=== PATIENT | female | born 1935 | race Caucasian/White ===

== ENCOUNTER 2016-12-30 19:15 | Emergency (ER) | payer OTHER ==
[2016-12-30 19:23] VITALS: TEMP 97.9
--- NOTE | 2016-12-30 19:35 | EDPHY ---
H & P Stated Complaint: TRIPPED ON CURB, HIT FACE, NO LOC, ABRAISONS TO FACE - Personal History Current Tetanus/Diphtheria Vaccine: Unsure - Medical/Surgical History Hx Asthma: No Hx Chronic Respiratory Disease: No Hx Diabetes: No Hx Cardiac Disease: No Hx Renal Disease: No Hx Cirrhosis: No Hx Alcoholism: No Hx HIV/AIDS: No Hx Splenectomy or Spleen Trauma: No Other PMH: HTN, HIGH CHOL, THYROID, CAROTID ARTERY SURG, FX LEFT LEG, TUBAL LIG - Social History Smoking Status: Former smoker Time Seen by Provider: 12/30/16 19:34 Constitutional: Initial Vital Signs Temperature (C) 36.6 C 12/30/16 19:17 Heart Rate 84 12/30/16 19:17 Respiratory Rate 18 12/30/16 19:17 Blood Pressure 193/81 H 12/30/16 19:17 O2 Sat (%) 92 12/30/16 19:17 O2 Delivery Mode Room Air Allergies/Adverse Reactions: No Known Allergies Allergy (Unverified 12/30/16 19:23) Home Medications: Medication Instructions Recorded Cholestersol Med 12/30/16 Hydrochlorothiazide 12/30/16 Metoprolol Succinate 12/30/16 Ramipril 12/30/16 Synthroid 12/30/16 Medical Decision Making Procedures: Procedure: Laceration repair with tissue adhesive I was asked by Dr Velarde to perform wound closure Verbal consent was obtained from the patient. The 2, 1 cm discrete glabellar laceration and 1, 1 cm philtrum laceration which is not through and through were anesthetized with 1% lidocaine with epinephrine copiously irrigated by ER staff and closed with tissue adhesive. . The procedure was performed by myself. Patient has been informed that scarring will occur, although every effort has been made to minimize this. (Verona Perez) ED Course/Re-evaluation: CHIEF COMPLAINT: Facial injury HISTORY OF PRESENT ILLNESS: The patient is a 81 y/o female arriving with her family member complaining of facial injuries after falling this evening. She says she was pushing a garbage can on her driveway and tripped and collided with it. She fell and her forehead hit the concrete and her glasses broke. She denies loss of consciousness, weakness, paresthesias, or other injuries. She was able to stand up and walk following the injury without issue. She denies anticoagulant use, but does take a baby aspirin. REVIEW OF SYSTEMS: A 10 point review of systems was performed and is negative with the exception of the elements mentioned in the history of present illness. PHYSICAL EXAM: HR, BP, O2 Sat, RR. Temp noted General Appearance: Alert, well hydrated, appropriate, and non-toxic appearing. Head: Forehead hematoma with small 1cm laceration medial left eyebrow, no scalp tenderness Eyes: Pupils equal, round, reactive to light and accommodation, EOMI, no trauma , no injection, no evidence of extraocular entrapment Ears: Clear bilaterally, no perforation, normal landmarks Nose: Atraumatic, no rhinorrhea, clear. Throat: There is no erythema or exudates, no lesions, normal tonsils, mucus membranes moist. Neck: Supple, 2+ carotid upstroke, nontender, no lymphadenopathy. Respiratory: No retractions, no distress, no wheezes, and no accessory muscle use. Lungs are clear to auscultation bilaterally. Cardiovascular: Regular rate and rhythm, no murmurs, rubs, or gallops. Bilateral carotid, radial, dorsalis pedis, and posterior tibial pulses intact. Good capillary refill all extremities. Gastrointestinal: Abdomen is soft, nontender, non-distended, no masses, no rebound, no guarding, no peritoneal signs. Musculoskeletal: Normal active ROM of all extremities, atraumatic. Neurological: Alert, appropriate, and interactive. The patient has normal DTRs and non-focal cranial nerves, motor, sensory, and cerebellar exam. Skin: No rashes, good turgor, no nodules on palpation. Past medical history: Hypertension Past surgical history: carotid artery surgery Family history: Noncontributory Social history: Family member at bedside DIAGNOSTICS/PROCEDURES/CRITICAL CARE TIME: Study: CT of the Head Indication: Trauma, pain Results: CT scan of the head was obtained. The results of the study are negative. The study was read by the radiologist, Dr. Zayas. I viewed the images myself on the PACS system. Study: CT of the Face Indication: Trauma, pain Results: CT scan of the face was obtained. The results of the study are negative. The study was read by the radiologist, Dr. Zayas. I viewed the images myself on the PACS system. DIFFERENTIAL DIAGNOSIS: The differential diagnosis for the patient's trauma included but was not limited to intracranial injury, long bone and pelvic bone fractures, spinal injury, intra-abdominal injury, and intra-thoracic injury. MEDICAL DECISION MAKING: This is a 81 y/o female presenting with forehead hematoma and small facial laceration secondary to a trip and fall this evening. No LOC or other injuries. No evidence of extraocular entrapment. Normal neurovascular exam. Plan for wound care and head and face CTs to rule out intracranial process. Laceration repaired by SCARLETT Perez. CTs are negative. Patient will be discharged with contusion and laceration instructions as well as specific return precautions. She declined script for pain medication. She is comfortable with this plan. (Connor Velarde) - Data Points Medications Given: Discontinued Medications Diphtheria/Tetanus/Acell Pertussis (Boostrix) 0.5 ml IM .ONCE ONE Stop: 12/30/16 19:51 Last Admin: 12/30/16 20:07 Dose: 0.5 ml Octyl Cyanoacrylate (Dermabond) 1 each TP EDNOW ONE Stop: 12/30/16 20:24 Last Admin: 12/30/16 20:26 Dose: 1 each Departure - Departure Disposition: Home, Routine, Self-Care Clinical Impression: Contusion of forehead, Face lacerations Condition: Good Instructions: Contusion in Adults (ED), Facial Laceration (ED) Additional Instructions: 1. Apply ice to sore areas. Take Tylenol as prescribed on the packaging as needed for pain. Expect to feel more sore tomorrow. 2. Follow up with your primary care provider for any symptoms not improved over the next 3-4 days. 3. Return to the ED for severe headache, vision changes, weakness or numbness on one side of your body, or other worsening of condition. Referrals: Brit Abraham PA [Primary Care Provider] - As per Instructions
[2016-12-30] MEDS ORDERED: TDAP ADULT 0.5 ML INJ (BOOSTRIX) IM ONE (19:50)
[2016-12-30] MEDS ORDERED: SKIN ADHESIVE (DERMABOND) 1 EACH TP ONE (20:23)
[2016-12-30 21:18] VITALS: BP 168/89; PULSE 86; RESP 16; O2SAT 96
--- NOTE | 2016-12-30 21:21 | CT ---
CT Head, Without Contrast History: Fall. Trauma. Technique: Standard noncontrast head CT protocol utilizing axial images acquired through the calvari um. Images were reconstructed down to 1.25-mm slice thickness, as well. Radiation dose technique wa s utilized. Findings: Soft tissue swelling is seen at the frontal scalp. No evidence for a skull fracture. No evidence for an intracranial mass, hemorrhage, or infarct. There is mild prominence of the ventricle s, sulci, and cisterns. No evidence for an extraaxial fluid collection. Vascular calcifications are seen intracranially indicating atherosclerotic disease. Impression: Soft tissue swelling in the frontal scalp, without evidence for a skull fracture. No ev idence for acute intracranial abnormality. CT Facial Bones, Without Contrast History: Trauma. Fall. Technique: 1-mm helical images were obtained of the facial bones, without contrast. Findings: Soft tissue swelling is seen over the supraorbital region. No evidence for an orbital rim fracture. Both globes are intact. Minimal mucous membrane thickening is seen in the maxillary sinu ses. No other findings for a facial bone fracture. Impression: Soft tissue swelling. No evidence for a facial bone fracture. Results called and discussed with Syd Davis M.D., at December 30, 2016 at 2048 hours.
== END 2016-12-30 21:18 | disposition home or self-care (01) ==
PROC: 08QPXZZ Repair Left Upper Eyelid, External Approach (ICD-10-PCS; principal; 2016-12-30)
DX: S01.112A Laceration without foreign body of left eyelid and periocular area, initial encounter (principal); I10 Essential (primary) hypertension; Z87.891 Personal history of nicotine dependence; Z23 Encounter for immunization; W01.198A Fall on same level from slipping, tripping and stumbling with subsequent striking against other object, initial encounter; Y92.89 Other specified places as the place of occurrence of the external cause; Y93.89 Activity, other specified

== ENCOUNTER → 2017-02-13 | Outpatient (CLI) | payer OTHER | LOC: BHCLAF 14:00 | PROVIDERS: ATTEND Internal Medicine Cardiovascular Disease | DX: I34.0 Nonrheumatic mitral (valve) insufficiency (principal) | CPT/HCPCS: 93306-PO ==

== ENCOUNTER → 2017-03-15 | Outpatient (CLI) | payer OTHER | LOC: BHCLAF 14:30 | PROVIDERS: ATTEND Internal Medicine Cardiovascular Disease | DX: I10 Essential (primary) hypertension (principal); E78.5 Hyperlipidemia, unspecified; I34.0 Nonrheumatic mitral (valve) insufficiency | CPT/HCPCS: 93005-PO ==

== ENCOUNTER 2019-03-01 08:17 | Emergency (ER) | payer OTHER ==
--- NOTE | 2019-03-01 08:31 | EDPHY ---
H & P Stated Complaint: High BP this am Time Seen by Provider: 03/01/19 08:28 - Personal History Current Tetanus/Diphtheria Vaccine: Yes - Medical/Surgical History Hx Asthma: No Hx Chronic Respiratory Disease: No Hx Diabetes: No Hx Cardiac Disease: No Hx Renal Disease: No Hx Cirrhosis: No Hx Alcoholism: No Hx HIV/AIDS: No Hx Splenectomy or Spleen Trauma: No Other PMH: HTN, HIGH CHOL, THYROID, CAROTID ARTERY SURG, FX LEFT LEG, TUBAL LIG - Social History Smoking Status: Former smoker Constitutional: Initial Vital Signs Temperature (C) 36.9 C 03/01/19 08:23 Heart Rate 74 03/01/19 08:23 Respiratory Rate 18 03/01/19 08:23 Blood Pressure 215/97 H 03/01/19 08:23 O2 Sat (%) 92 03/01/19 08:23 O2 Delivery Mode Room Air Allergies/Adverse Reactions: No Known Allergies Allergy (Unverified 12/30/16 19:23) Home Medications: Medication Instructions Recorded Cholestersol Med 12/30/16 Hydrochlorothiazide 12/30/16 Metoprolol Succinate 12/30/16 Ramipril 12/30/16 Synthroid 12/30/16 Cephalexin [Keflex (RX)] 500 mg PO TID #30 cap 03/01/19 Medical Decision Making ED Course/Re-evaluation: CHIEF COMPLAINT: High blood pressure HISTORY OF PRESENT ILLNESS: The patient is an 83 y/o female with a history of hypertension and hypercholesteremia complaining of high blood pressure this morning. The patient takes Ramipril, metoprolol, and hydrochlorothiazide for her hypertension. This morning she took Ramipril and HCTZ as prescribed. Shortly after she felt flush in the face and had a "crick in her neck" and a slight headache. She denies chest pain/pressure or shortness of breath. She also felt mildly unsteady on her feet. Due to these symptoms she took her BP which was 170/105. She normally does not take her BP reading in the morning. She took the BP several times and the last reading before arriving to the ED was 165/80. Due to these symptoms she decided to present to the emergency department. No fever, body aches, lightheadedness, chest pain, heart palpitations, shortness of breath, cough, abdominal pain, urinary or bowel complaints, numbness, paresthesias. She is seen by Dr. Jimenez, glove pairer, and just had an echo performed. REVIEW OF SYSTEMS: A 10 point review of systems was performed and is negative with the exception of the elements mentioned in the history of present illness. PHYSICAL EXAM: HR, BP, O2 Sat, RR. Temp noted General Appearance: Alert, well hydrated, appropriate, and non-toxic appearing. Head: Atraumatic without scalp tenderness or obvious injury Eyes: Pupils equal, round, reactive to light and accommodation, EOMI, no trauma , no injection. Ears: Clear bilaterally, no perforation, normal landmarks Nose: Atraumatic, no rhinorrhea, clear. Throat: There is no erythema or exudates, no lesions, normal tonsils, mucus membranes moist. Neck: Supple, 2+ carotid upstroke, nontender, no lymphadenopathy. Respiratory: No retractions, no distress, no wheezes, and no accessory muscle use. Lungs are clear to auscultation bilaterally. Cardiovascular: Regular rate and rhythm, no murmurs, rubs, or gallops. Bilateral carotid, radial, dorsalis pedis, and posterior tibial pulses intact. Good capillary refill all extremities. Gastrointestinal: Abdomen is soft, nontender, non-distended, no masses, no rebound, no guarding, no peritoneal signs. Musculoskeletal: Normal active ROM of all extremities, atraumatic. Neurological: Alert, appropriate, and interactive. The patient has normal DTRs and non-focal cranial nerves, motor, sensory, and cerebellar exam. Skin: No rashes, good turgor, no nodules on palpation. Past medical history: Hypertension, hypercholesteremia Past surgical history: Carotid artery surgery, tubal ligation Family history: Denies Social history: Daughter at bedside, lives in [place] DIAGNOSTICS/PROCEDURES/CRITICAL CARE TIME: EKG: The 12 lead EKG was interpreted by myself as sinus rhythm with a rate of 65. See hard copy and/or "tracemaster" electronic copy for interpretation. DIFFERENTIAL DIAGNOSIS: The differential diagnosis for the patient's hypertension includes but is not limited to transient hypertension, hypertensive urgency, hypertensive emergency , headache. MEDICAL DECISION MAKING: The patient is an 83 y/o female with a history of hypertension and hypercholesteremia presenting with high blood pressure this morning. The patient takes Ramipril, metoprolol, and hydrochlorothiazide for her hypertension , which she has taken for several years. This morning she took Ramipril and HCTZ as prescribed. Shortly after she felt flush in the face and had a "crick in her neck" and a slight headache. Her home BP readings were 170/105 and 165/ 80. She normally does not take her BP reading in the morning. On exam the patient has a BP of 202/101 but is otherwise asymptomatic. She is not in a hypertensive urgency or emergency. EKG ordered. 0842: I interpreted patient's EKG as sinus rhythm with a rate of 65. 9:50 a.m.: I spoke with Dr. Minesh Jimenez from Cardiology. This is his patient. He knows her well. He looked back at her records and states that usually her blood pressure is quite good in the office. He just saw her at the beginning of January and had pressures in the 120s over 80s range. He would like me to check some laboratory studies. Once again this patient is still asymptomatic. If laboratory studies are normal he would like me to change her amlodipine from the morning till the evening. And increased from 5-10 mg. And then he will follow up with her next week. He would like me to keep the ramipril, metoprolol , and hydrochlorothiazide the same. 1039: Patient's UA reveals a low-grade UTI; I have prescribed her Keflex. Patient is a hard stick and we are just now getting blood. 1104: Patients' BP is 178/81; labs still pending. 1125: Reassessed patient and discussed laboratory and imaging findings. Patient' s symptoms are due to transient hypertension. I have discussed plan to change Amlodipine. She will follow up with Dr. Jimenez. Return precautions provided; patient is comfortable with this plan. - Data Points Laboratory Results: Laboratory Results 03/01/19 10:50 03/01/19 10:50 03/01/19 03/01/19 03/01/19 10:58 10:50 10:50 WBC 9.27 10^3/uL 10^3/uL (3.80-9.50) RBC 4.48 10^6/uL 10^6/uL (4.18-5.33) Hgb 14.8 g/dL g/dL (12.6-16.3) Hct 43.9 % % (38.0-47.0) MCV 98.0 fL fL (81.5-99.8) MCH 33.0 pg pg (27.9-34.1) MCHC 33.7 g/dL g/dL (32.4-36.7) RDW 12.9 % % (11.5-15.2) Plt Count 236 10^3/uL 10^3/uL (150-400) MPV 9.5 fL fL (8.7-11.7) Neut % (Auto) 68.1 % % (39.3-74.2) Lymph % (Auto) 22.1 % % (15.0-45.0) [place] % (Auto) 5.9 % % (4.5-13.0) Eos % (Auto) 2.7 % % (0.6-7.6) Baso % (Auto) 0.6 % % (0.3-1.7) Nucleat RBC Rel Count 0.0 % % (0.0-0.2) Absolute Neuts (auto) 6.30 10^3/uL 10^3/uL (1.70-6.50) Absolute Lymphs (auto) 2.05 10^3/uL 10^3/uL (1.00-3.00) Absolute Monos (auto) 0.55 10^3/uL 10^3/uL (0.30-0.80) Absolute Eos (auto) 0.25 10^3/uL 10^3/uL (0.03-0.40) Absolute Basos (auto) 0.06 10^3/uL 10^3/uL (0.02-0.10) Absolute Nucleated RBC 0.00 10^3/uL 10^3/uL (0-0.01) Immature Gran % 0.6 % % (0.0-1.1) Immature Gran # 0.06 10^3/uL 10^3/uL (0.00-0.10) Sodium 139 mEq/L mEq/L (135-145) Potassium 4.2 mEq/L mEq/L (3.5-5.2) Chloride 101 mEq/L mEq/L (97-110) Carbon Dioxide 28 mEq/l mEq/l (22-31) Anion Gap 10 mEq/L mEq/L (6-14) BUN 14 mg/dL mg/dL (7-23) Creatinine 0.8 mg/dL mg/dL (0.6-1.0) Estimated GFR > 60 Glucose 106 mg/dL H mg/dL (70-100) Calcium 10.7 mg/dL H mg/dL (8.5-10.4) Phosphorus Pending POC Troponin I 0.01 ng/mL ng/mL (0.00-0.08) NT-Pro-B Natriuret Pep Pending Urine Color Urine Appearance Urine pH Ur Specific [place] Urine Protein Urine Ketones Urine Blood Urine Nitrate Urine Bilirubin Urine Urobilinogen Ur Leukocyte Esterase Urine RBC Urine WBC Ur Epithelial Cells Urine Bacteria Urine Mucus Urine Glucose 03/01/19 10:20 WBC RBC Hgb Hct MCV MCH MCHC RDW Plt Count MPV Neut % (Auto) Lymph % (Auto) [place] % (Auto) Eos % (Auto) Baso % (Auto) Nucleat RBC Rel Count Absolute Neuts (auto) Absolute Lymphs (auto) Absolute Monos (auto) Absolute Eos (auto) Absolute Basos (auto) Absolute Nucleated RBC Immature Gran % Immature Gran # Sodium Potassium Chloride Carbon Dioxide Anion Gap BUN Creatinine Estimated GFR Glucose Calcium Phosphorus POC Troponin I NT-Pro-B Natriuret Pep Urine Color YELLOW Urine Appearance CLEAR Urine pH 7.0 (5.0-7.5) Ur Specific [place] 1.004 (1.002-1.030) Urine Protein NEGATIVE (NEGATIVE) Urine Ketones NEGATIVE (NEGATIVE) Urine Blood NEGATIVE (NEGATIVE) Urine Nitrate POSITIVE H (NEGATIVE) Urine Bilirubin NEGATIVE (NEGATIVE) Urine Urobilinogen NEGATIVE EU EU (0.2-1.0) Ur Leukocyte Esterase NEGATIVE (NEGATIVE) Urine RBC NONE SEEN /hpf /hpf (0-3) Urine WBC 3-5 /hpf H /hpf (0-3) Ur Epithelial Cells TRACE /lpf /lpf (NONE-1+) Urine Bacteria TRACE /hpf H /hpf (NONE SEEN) Urine Mucus TRACE /lpf /lpf (NONE-1+) Urine Glucose NEGATIVE (NEGATIVE) Medications Given: Discontinued Medications Cephalexin HCl (Keflex) 500 mg PO EDNOW ONE PRN Reason: Protocol Stop: 03/01/19 10:39 Last Admin: 03/01/19 11:02 Dose: 500 mg Point of Care Test Results: Chemistry 03/01/19 10:58 POC Troponin I 0.01 ng/mL ng/mL (0.00-0.08) Departure - Departure Disposition: Home, Routine, Self-Care Clinical Impression: Transient hypertension Hypertension Qualifiers: Hypertension type: unspecified Qualified Code(s): I10 - Essential (primary) hypertension Condition: Good Instructions: Chronic Hypertension (ED), Hypertensive Crisis (ED), Hypertension (ED) Additional Instructions: 1. Start taking Amlodipine at night. Please increase your dosage from 5mg to 10mg. 2. Follow up with Dr. Jimenez next week without fail. 3. Return to the Emergency Department for fever, chest pain, shortness of breath , increasing pain or other worsening of condition. 4. Take Keflex as prescribed for your UTI. Referrals: Brit Abraham PA [Primary Care Provider] - As per Instructions Minesh Jimenez MD [Medical Doctor] - As per Instructions Prescriptions: Cephalexin [Keflex (RX)] 500 mg PO TID #30 cap Report Scribed for: Connor Velarde Report Scribed by: Kenia Pinto Date of Report: 03/01/19 Time of Report: 09:09
[2019-03-01] MEDS ORDERED: CEPHALEXIN 500 MG CAP PO ONE (10:38)
[2019-03-01 11:02] VITALS: BP 178/81
[2019-03-01 11:03] LABS: PLATELET COUNT 236 10^3/uL (150-400)
--- NOTE | 2019-03-01 14:36 | CPEKG ---
Test Reason : OPEN Blood Pressure : / mmHG Vent. Rate : 065 BPM Atrial Rate : 065 BPM P-R Int : 190 ms QRS Dur : 093 ms QT Int : 410 ms P-R-T Axes : 038 038 061 degrees QTc Int : 427 ms Sinus rhythm Confirmed by Connor Velarde ([id number]) on 03/01/2019 2:36:20 PM Referred By: Connor Velarde Confirmed By:Connor Velarde
== END 2019-03-01 11:42 | disposition home or self-care (01) ==
DX: I10 Essential (primary) hypertension (principal)
CPT/HCPCS: 84484-ER